=== PATIENT | female | born 1965 | race Caucasian/White ===

== ENCOUNTER 2019-01-15 15:24 | Emergency (ER) | payer SELFPAY ==
[2019-01-15] MEDS ORDERED: FAMOTIDINE 20 MG TABLET PO ONE (17:07)
[2019-01-15] MEDS ORDERED: DEXAMETHASONE SOD PHOS INJ 10 MG/1 ML VIAL IM ONE (17:08)
--- NOTE | 2019-01-15 17:08 | ER Document Report ---
HPI - HPI Time Seen by Provider: 01/15/19 16:28 Pain Level: 4 Context: Patient is a 53-year-old female burning, itchiness, and swelling to bilateral arms. She started having symptoms 2-1/2 weeks ago. She had been taking Benadryl, hydrocortisone cream, and calamine lotion to help with her symptoms, but they did not help. She has not seen a primary care doctor in regards to this visit. She states that the pruritus started on her arms and spread to her hands and fingers. Denies any other portion of her body that has the rash. Patient states that she has been scratching her arms and her hands. Denies any fever, body aches, or any other symptoms. - ROS Notes: REVIEW OF SYSTEMS: CONSTITUTIONAL : Denies recent illness. Denies recent unintentional weight loss. Denies fever, chills, or sweats. EENT: Denies eye, ear, throat, or mouth pain, discharge, or symptoms. Denies nasal or sinus congestion. CARDIOVASCULAR: Denies chest pain. RESPIRATORY: Denies shortness of breath, cough, congestion, difficulty breat andrea, or wheezing. GASTROINTESTINAL: Denies nausea, vomiting, and diarrhea. Denies abdominal pain. Denies constipation. GENITOURINARY: Denies difficulty urinating, burning, blood in urine, urgency or frequency. MUSCULOSKELETAL: Denies neck and back pain. Denies joint pain or swelling. SKIN: See HPI HEMATOLOGIC : Denies easy bruising or bleeding. LYMPHATIC: Denies swollen, painful, enlarged glands. NEUROLOGICAL: Denies no numbness or tingling denies weakness. Denies headache. Denies altered mental status. Denies alteration in speech. PSYCHIATRIC: Denies stress, anxiety, alteration in sleep patterns, or depression. All other systems reviewed and negative. Past Medical History - Social History Smoking Status: Current Every Day Smoker Chew tobacco use (# tins/day): No Frequency of alcohol use: None Drug Abuse: None Family History: Reviewed & Not Pertinent Patient has suicidal ideation: No Patient has homicidal ideation: No Pulmonary Medical History: Reports: Hx COPD Renal/ Medical History: Denies: Hx Peritoneal Dialysis Past Surgical History: Reports: Hx Appendectomy, Hx Cholecystectomy, Hx Orthopedic Surgery - shoulder, Hx Tubal Ligation Vertical Provider Document - CONSTITUTIONAL Notes: PHYSICAL EXAMINATION: GENERAL: Appears well, healthy, well-nourished, no acute distress. HEAD: Normocephalic, atraumatic. EYES: PERRL, conjunctiva normal, all extraocular movements intact, sclera nonicteric ENT: Moist mucous membranes. NECK: Supple, no noticeable swelling, redness, rash. Normal range of motion. LUNGS: Equal breath sounds bilaterally and clear to auscultation. No wheezes rales or rhonchi. CARDIOVASCULAR: S1-S2, regular rate, regular rhythm. Radial pulses 2+, normal. ABDOMEN: Normoactive bowel sounds. Soft, nontender, no guarding, no rebound tenderness, and no masses palpated. EXTREMITIES: Normal strength and range of motion, no pitting or edema. No cyanosis. NEUROLOGICAL: Moves all extremities upon command. Strength 5/5 in all extremities. PSYCH: Normal mood, normal affect. SKIN: Warm, very dry. Rash noted to bilateral arms and hands. Normal skin turgor. - INFECTION CONTROL TRAVEL OUTSIDE OF THE [place] IN LAST 30 DAYS: No Course - Re-evaluation Re-evalutation: 01/15/19 17:14 Patient will be given a dose of Pepcid and Decadron here in the emergency depar tment. She will follow-up with the [facility] or [facility] in regards to this visit. Follow-up precautions were given. Verbal discharge instructions were given to the patient. They verbalized understanding. They are stable for discharge. - Vital Signs Vital signs: Temp Pulse Resp BP Pulse Ox 97.7 F 79 16 138/67 H 97 01/15/19 15:31 01/15/19 15:31 01/15/19 15:31 01/15/19 15:31 01/15/19 15:31 Discharge - Discharge Clinical Impression: Rash Condition: Stable Disposition: HOME, SELF-CARE Additional Instructions: You are seen today in the emergency department for a rash on your arms, hands, and fingers. The exact cause of your rash is unknown. You received a dose of thyroids here in the emergency department. Please continue Pepcid 20 mg twice a day for the next week. Please follow-up with 1 of the clinics below in regards to this visit. Please try your best to not scratch your skin. Please change your body wash to Dove sensitive skin. Also, you Cetaphil lotion to help soothe your skin. Prescriptions: Famotidine [Pepcid 20 mg Tablet] 20 mg PO BID #12 tablet
[2019-01-15 17:29] VITALS: BP 142/67
== END 2019-01-15 17:31 | disposition home or self-care (01) ==
LOC: ER 15:24
DX: R21 Rash and other nonspecific skin eruption (principal); L29.8 Other pruritus; J44.9 Chronic obstructive pulmonary disease, unspecified; F17.200 Nicotine dependence, unspecified, uncomplicated
CPT/HCPCS: 99282; 96374; J1100